=== PATIENT | female | born 1980 | race Caucasian/White ===

== ENCOUNTER → 2016-08-17 | Outpatient (CLI) | payer BC ==
[~2016-08-17] MED LIST: CARI250T PO; FLUO40CA7 PO; IBUP-1547 PO; LIDO700A18 TOP; META800T91 PO; OXYC1TAB8 PO; PHEN37.586; PREN1TAB77 PO
--- NOTE | 2016-08-17 08:20 | DI ---
Indication: ITS.REASON: M25.541 PAIN IN JOINTS OF RIGHT HAND; M25.542 PAIN IN JOINTS OF L HAND BILATERAL 3 VIEW Comparison: None Findings: There is no acute fracture, dislocation or malalignment identified. Patient shows fairly good preservation of the joint spaces with no subluxations, marked narrowing or heterotrophic changes appreciated. No marked asymmetry between right and left sides appreciated. Impression: 1. No acute osseous abnormality. 2. No marked erosive or degenerative changes identified about joints in either hand. .
== END ==
LOC: IMA 07:28
PROVIDERS: ATTEND Nurse Practitioner Family
DX: M25.541 Pain in joints of right hand (principal); M25.542 Pain in joints of left hand